=== PATIENT | male | born 1995 | race Two or more races ===

== ENCOUNTER 2023-03-06 16:36 | Emergency (ER) | payer MEDICAID ==
[~2023-03-06] VITALS: Ht 188 cm; Wt 91.0 kg
[~2023-03-06 16:36] MED LIST: AZIT-74 PO; FLU05NSL; LORA-622 PO; PSEU120T2 PO; [UNRECOGNIZED DRUG - CODE] TOP
[2023-03-06 19:00] VITALS: BP 119/62; PULSE 70; RESP 18; TEMP 98.1; O2SAT 97
[2023-03-06] MEDS ORDERED: IBUP1TAB5 PO (20:59)
[2023-03-06] MEDS ORDERED: CYCL-839 PO (20:59)
[2023-03-06] MEDS ORDERED: KETOROLAC TROMETH 60MG/2ML VIAL IM ONE (21:00)
== END 2023-03-06 21:42 | disposition home or self-care (01) ==
LOC: EDBD 16:36 → ER 16:36
DX: S16.1XXA Strain of muscle, fascia and tendon at neck level, initial encounter (principal); S00.83XA Contusion of other part of head, initial encounter; V43.62XA Car passenger injured in collision with other type car in traffic accident, initial encounter; Y93.89 Activity, other specified; Y92.488 Other paved roadways as the place of occurrence of the external cause; Y99.8 Other external cause status
CPT/HCPCS: 70450; 72125; 96372; 99285; J1885